=== PATIENT | male | born 1945 | race Caucasian/White ===

== ENCOUNTER 2018-04-11 08:37 | Emergency (ER) | payer MEDICARE, BC ==
[~2018-04-11] VITALS: Ht 175.3 cm; Wt 83.9 kg
[2018-04-11 08:43] VITALS: BP 148/90
[2018-04-11 09:23] LABS: CALCIUM, SERUM 8.9 mg/dL (8.5-10.1); CARBON DIOXIDE 26 mmol/L (21-32); CHLORIDE 105 mmol/L (98-107); CREATININE 1.3 mg/dL (0.6-1.3); GLUCOSE 123 mg/dL (74-106); POTASSIUM 4.6 mmol/L (3.5-5.1); SODIUM SERUM 140 mmol/L (136-145); UREA NITROGEN, BLOOD 24 mg/dL (7-18)
== END 2018-04-11 09:38 | disposition home or self-care (01) ==
LOC: ER 08:39
DX: R42 Dizziness and giddiness (principal)
CPT/HCPCS: 36415; 80048-TC; A4606; Z7610

== ENCOUNTER 2020-04-13 14:32 | Emergency (ER) | payer MEDICARE, BC ==
[~2020-04-13] VITALS: Ht 175.3 cm; Wt 83.5 kg
--- NOTE | 2020-04-13 14:45 | NUR ---
[facility] AT BEDSIDE FOR WOUND CLEANING AND APPLICATION OF BASBALL SPLINT AT [facility]
[2020-04-13] MEDS ORDERED: TDAP [DIPH/PERTUSSIS/TET] 0.5 ML VIAL IM ONE ×2 (15:00→15:03)
--- NOTE | 2020-04-13 15:06 | NUR ---
Patient discharged to home in stable condition. Written and verbal after care instructions given. Patient verbalizes understanding of instruction.
[2020-04-13 15:12] VITALS: BP 133/86
--- NOTE | 2020-04-13 15:12 | NUR ---
Patient discharged to home in stable condition. Written and verbal after care instructions given. Patient verbalizes understanding of instruction.
== END 2020-04-13 15:12 | disposition home or self-care (01) ==
LOC: ER 14:39
DX: S67.196A Crushing injury of right little finger, initial encounter (principal); Z98.890 Other specified postprocedural states; W34.110A Accidental malfunction of airgun, initial encounter; Y93.89 Activity, other specified; Y92.89 Other specified places as the place of occurrence of the external cause; Y99.8 Other external cause status
CPT/HCPCS: 90715